=== PATIENT | female | born 1995 | race Caucasian/White ===

== ENCOUNTER → 2020-02-04 | Outpatient (REF) | payer OTHER | LOC: M SFHCWAGY 17:32 | PROVIDERS: ATTEND Obstetrics & Gynecology | DX: Z12.4 Encounter for screening for malignant neoplasm of cervix (principal) ==

== ENCOUNTER → 2020-03-05 | Outpatient (REF) | payer OTHER | LOC: M SFHCWAGY 18:31 | PROVIDERS: ATTEND Obstetrics & Gynecology | DX: N91.5 Oligomenorrhea, unspecified (principal) ==

== ENCOUNTER → 2022-05-12 | Outpatient (CLI) | payer OTHER ==
[~2022-05-12] MED LIST: E-Z-GAS II EFFERVESCENT PACKET (SODIUM BICARB./CITRIC ACID/SIMETHICONE) As Ordered ONE; E-Z-HD 98% w/w 340GM SUSP BTL As Ordered ONE; E-Z-PAQUE 96% w/w SUSP 176GM BTL As Ordered ONE
== END ==
LOC: M RAD 09:26
PROVIDERS: ATTEND Physician Assistant
DX: R13.10 Dysphagia, unspecified (principal)

== ENCOUNTER → 2022-10-24 | Outpatient (CLI) | payer OTHER | LOC: M PLALAB 14:05 | PROVIDERS: ATTEND Obstetrics & Gynecology | DX: N91.5 Oligomenorrhea, unspecified (principal) ==

== ENCOUNTER → 2023-08-13 | Outpatient (REF) | payer BC ==
[2023-08-13 18:08] LABS: URINE PREG TEST NEGATIVE (NEGATIVE)
[2023-08-13 18:09] LABS: APPEARANCE, URINE MANUAL CLEAR (CLEAR); COLOR, URINE MANUAL ORANGE (YELLOW); GLUCOSE, URINE (UA) MANUAL NEGATIVE (NEGATIVE); KETONE, URINE MANUAL NEGATIVE (NEGATIVE); PROTEIN, URINE MANUAL OBSCURED mg/dL (NEGATIVE)
[2023-08-13 18:10] LABS: BILIRUBIN, URINE MANUAL OBSCURED (NEGATIVE); BLOOD URINE MANUAL POSITIVE (NEGATIVE); LEUKOCYTE ESTERASE, URINE MAN POSITIVE (NEGATIVE); NITRITE, URINE MANUAL OBSCURED (NEGATIVE); UROBILINOGEN, URINE MANUAL OBSCURED mg/dl (NORMAL)
[2023-08-13 18:16] LABS: BACTERIA, URINE MOD AMOUNT; HYALINE CAST, URINE NONE SEEN /lpf (0-1); SQUAMOUS EPITHELIAL CELL URINE SMALL AMOUNT /hpf (SMALL AMT)
[2023-08-13 18:17] LABS: WBC, URINE 20-30 /hpf (0-3)
== END ==
LOC: M LAB REF 17:51
PROVIDERS: ATTEND Physician Assistant Medical
DX: N39.0 Urinary tract infection, site not specified (principal)

== ENCOUNTER → 2024-05-09 | Outpatient (CLI) | payer BC ==
[2024-05-09 15:06] LABS: BASO % 0.2 % (0.0-1.0); EOS % 0.3 % (0.0-3.0); HEMATOCRIT 44.3 % (36.0-47.0); HEMOGLOBIN 14.4 g/dl (12.0-15.5); LYMPH % 6.8 % (24.0-44.0); MEAN CORPUSCULAR HEMOGLOBIN 30.3 pg (27.0-33.0); MEAN CORPUSCULAR HGB CONC 32.5 g/dl (32.0-36.5); MEAN CORPUSCULAR VOLUME 93.3 fl (80.0-96.0); MONO # 0.9 10^3/uL (0.0-0.8); MONO % 5.9 % (2.0-8.0); NEUTROPHILS % 86.5 % (36.0-66.0); PLATELET COUNT, AUTOMATED 287 10^3/uL (150-450); RED BLOOD COUNT 4.75 10^6/uL (4.00-5.40)
[2024-05-09 15:22] LABS: HEMOGLOBIN A1c 4.9 % (4.0-6.0)
[2024-05-09 15:29] LABS: ALBUMIN 3.8 G/DL (3.2-5.2); ALKALINE PHOSPHATASE 60 U/L (35-104); ALT/SGPT 59 U/L (7.0-40); AST/SGOT 20 U/L (<34); BILIRUBIN,TOTAL 0.7 MG/DL (0.3-1.2); BLOOD UREA NITROGEN 15 MG/DL (9-23); CALCIUM LEVEL 8.9 MG/DL (8.5-10.1); CARBON DIOXIDE LEVEL 29 MMOL/L (20-31); CHLORIDE LEVEL 104 MMOL/L (98-107); CHOLESTEROL LEVEL 220 MG/DL (<200); CHOLESTEROL RISK RATIO 4.47 (<5); CREATININE FOR GFR 0.84 MG/DL (0.55-1.30); GLOMERULAR FILTRATION RATE > 60.0 (>60); GLUCOSE, FASTING 101 MG/DL (60-100); HDL CHOLESTEROL 49.2 MG/DL (>40); LDL CHOLESTEROL 154.6 MG/DL (<100); NON-HDL-C 170.8 MG/DL; POTASSIUM SERUM 4.6 MMOL/L (3.5-5.1); SODIUM LEVEL 140 MMOL/L (136-145); TOTAL PROTEIN 7.2 G/DL (5.7-8.2); TRIGLYCERIDES LEVEL 81 MG/DL (<150)
[2024-05-09 15:32] LABS: HCG, SERUM QUALITATIVE NEGATIVE (NEGATIVE); PROLACTIN 4.14 NG/ML; THYROID STIMULATING HORMONE 1.873 uIU/ML (0.55-4.78)
== END ==
LOC: M PLALAB 10:24
PROVIDERS: ATTEND Physician Assistant
DX: E66.9 Obesity, unspecified (principal)

== ENCOUNTER → 2024-05-09 | Outpatient (REF) | payer BC | LOC: M PLALAB 13:10 | PROVIDERS: ATTEND Obstetrics & Gynecology | DX: N93.9 Abnormal uterine and vaginal bleeding, unspecified (principal); N89.8 Other specified noninflammatory disorders of vagina; Z53.9 Procedure and treatment not carried out, unspecified reason ==